=== PATIENT | female | born 2000 | race Caucasian/White ===

== ENCOUNTER 2024-04-04 12:56 | Emergency (ER) | payer OTHER ==
[~2024-04-04] VITALS: Ht 167.6 cm; Wt 86.0 kg
[2024-04-04 14:54] VITALS: BP 116/81; PULSE 70; RESP 16; TEMP 97.1; O2SAT 99
== END 2024-04-04 17:11 | disposition home or self-care (01) ==
LOC: ER 12:56
DX: M25.561 Pain in right knee (principal)
CPT/HCPCS: 73564; 99284